=== PATIENT | female | born 1950 ===

== ENCOUNTER 2021-01-30 10:19 | Outpatient (CLI) | payer MEDICARE ==
--- NOTE | 2021-01-30 14:44 | Magnetic Resonance Report ---
MRA HEAD WITHOUT CONTRAST HISTORY: Hemiparesis COMPARISON: None. TECHNIQUE: Routine MRA of the head is performed. 3-D/MIP reformats postprocessed. CONTRAST: None. FINDINGS: Intracranial vertebral arteries: No significant abnormality. Basilar artery: No significant abnormality. Posterior cerebral arteries: No significant abnormality. Intracranial internal carotid arteries: No significant abnormality. Anterior cerebral arteries: Right A1 segment is the dominant artery and supplies both A2 segments; le ft A1 segment patent Middle cerebral arteries: No significant abnormality. Variants and anomalies:None Additional findings: None. IMPRESSION: No significant abnormality. Signer Name: Ryan Barry MD Signed: 01/30/2021 2:32 PM Workstation Name: [id number]
--- NOTE | 2021-01-30 14:45 | Magnetic Resonance Report ---
NONENHANCED MR SCAN OF THE BRAIN: INDICATION / CLINICAL INFORMATION: HEMIPARESIS G81.01. TECHNIQUE: Multiplanar, multisequence MR images of the brain obtained. COMPARISON: None available. FINDINGS: BRAIN / INTRACRANIAL CONTENTS: No acute ischemia, acute hemorrhage, mass effect, midline shift, or hy drocephalus. No chronic infarct or atrophy. Periventricular and deep hemispheric white matter lesion s are nonspecific, probably due to chronic small vessel disease CRANIOCERVICAL JUNCTION: No significant abnormality. VASCULAR FLOW-VOIDS: No significant abnormality. ORBITS: No significant abnormality of visualized orbits. SINUSES / MASTOIDS: No significant abnormality of visualized sinuses and mastoid air cells. ADDITIONAL FINDINGS: None. IMPRESSION: 1. No acute/subacute ischemia; no acute/subacute focal parenchymal lesion in the brain Signer Name: Ryan Barry MD Signed: 01/30/2021 2:36 PM Workstation Name: [id number]
== END 2021-01-30 10:20 | disposition home or self-care (01) ==
LOC: MRI 10:19
PROVIDERS: ATTEND Internal Medicine
DX: G81.01 Flaccid hemiplegia affecting right dominant side (principal)
CPT/HCPCS: 70544; 70551